=== PATIENT | female | born 1995 | race Caucasian/White ===

== ENCOUNTER 2020-04-07 14:56 | Outpatient (CLI) | payer OTHER ==
--- NOTE | 2020-04-07 17:33 | MRI Report ---
PROCEDURE: Foot LT W/O INDICATIONS: LT FOOT PAIN TECHNIQUE: Noncontrast coronal and sagittal T1 spin echo and STIR; axial T1 spin echo and T2 fast spin echo with fat saturation through the left foot. COMPARISON: Left foot radiographs dated 03/24/2020. FINDINGS: Image quality: Excellent. Nondisplaced fracture, versus severe marrow contusion of the cuboid is seen with associated marrow ed leticia. The actual fracture line is not well visualized. Marrow edema also present within the inferior h ead of the talus, probably additional marrow contusion. Remainder of the marrow signal intensity appe ars within normal limits Minimal posterior tibialis tenosynovitis. Elsewhere, visualized tendons appear grossly intact. Muscle signal intensity unremarkable. No tibiotalar joint effusion. Achilles tendon intact. Plantar fascia intact. Bright dark artifact along the plantar aspect of the foot, unclear etiology or clinical significance. IMPRESSION: Nondisplaced fracture versus severe marrow contusion involving the cuboid. Additional marrow edema present within the inferior aspect of the talar head, probably acute marrow c ontusion. Reviewed by: Faheem Dolan MD on 04/07/2020 5:32 PM PDT Approved by: Faheem Dolan MD on 04/07/2020 5:32 PM PDT Station ID: [id number]
== END 2020-04-07 14:57 | disposition home or self-care (01) ==
LOC: DI 14:56
DX: R93.6 Abnormal findings on diagnostic imaging of limbs (principal)